=== PATIENT | male | born 1995 | race Caucasian/White ===

== ENCOUNTER 2019-02-06 10:17 | Emergency (ER) | payer OTHER ==
[2019-02-06 10:31] VITALS: BP 125/80; PULSE 62; TEMP 98; BMI 23.2
--- NOTE | 2019-02-06 10:47 | PDOC ---
History of Present Illness - General Chief Complaint: Cold Symptoms Stated Complaint: FLU LIKE Time Seen by Provider: 02/06/19 10:20 - History of Present Illness Initial Comments: 02/06/19 11:57 Chief complaint: Headache, body aches, sore throat HPI: Patient is concerned that he has HIV. He had a sexual encounter several weeks ago, states he is a condom, but is still fearful that it may have broken, though he does not observe such an occurrence. He has had mild sore throat on and off for several weeks. Vague body aches, which are migratory. No swelling , warmth, or erythema of the joints. No muscle weakness. He was tested once for HIV several years ago and was negative. He has no other chronic illnesses Review of systems: As noted above. Otherwise reviewed and negative Past medical history: Otherwise healthy male with no significant past medical or surgical problems and taking no medication other than occasional ibuprofen Social/family history: Denies drugs alcohol or tobacco. Admits increased stress. Negative family history Physical exam: Alert oriented well-developed well-nourished no acute distress but appears somewhat anxious. Cooperative Afebrile, vital signs normal PERRLA 4 mm, fundi benign, ENT clear. There is no sign of pharyngeal erythema or exudate. Neck supple without bruit mass or nodes Lungs clear with full breath sounds bilaterally CV regular without murmur rub or gallop Abdomen soft nontender without mass organomegaly Skin clear, no rash, adequate turgor and wet mucous membranes Extremities no CCE. No joint swelling or inflammation. Neurological C2 to 12 intact. Strength full and symmetric. No focal sensorimotor deficits. Gait stable and unimpaired Impression: Vague constitutional symptoms, no fever or other definite sign of influenza or HIV. Anxiety. Plan: CBC and chemistries, sed rate, and HIV testing as requested. Further evaluation and treatment depending on results. Past History - Past Medical History Allergies/Adverse Reactions: Allergies Allergy/AdvReac Type Severity Reaction Status Date / Time No Known Allergies Allergy Verified 02/21/16 10:51 Home Medications: Ambulatory Orders NK [No Known Home Medication] 06/02/13 COPD: No - Psycho Social/Smoking Cessation Hx Smoking History: Current some day smoker Have you smoked in the past 12 months: Yes Number of Cigarettes Smoked Daily: 1 Information on smoking cessation initiated: Yes Hx Alcohol Use: Yes Drug/Substance Use Hx: No Substance Use Type: Alcohol *Physical Exam - Vital Signs Last Vital Signs Temp Pulse Resp BP Pulse Ox 98 F 62 20 125/80 99 02/06/19 10:18 02/06/19 10:18 02/06/19 10:18 02/06/19 10:18 02/06/19 10:18 ED Treatment Course - LABORATORY CBC & Chemistry Diagram: 02/06/19 10:55 02/06/19 10:55 Medical Decision Making - Medical Decision Making 02/06/19 12:12 CBC, chemistries, and ESR without significant abnormalities. HIV pending. Patient reassured, appears less anxious and in no significant pain or other distress upon discharge, to check HIV results and follow-up primary physician as directed. Discharge - Discharge Information Problems reviewed: Yes Clinical Impression/Diagnosis: Viral syndrome Condition: Stable Disposition: HOME - Admission No - Follow up/Referral - Patient Discharge Instructions Patient Printed Discharge Instructions: DI for Viral Syndrome Additional Instructions: Rest, hydration, good nutrition, adequate sleep. Check HIV result in 1 to 2 days. Follow-up primary physician if symptoms persist. No evidence of significant disease on extensive blood work performed today. - Post Discharge Activity
[2019-02-06 11:09] LABS: BASO % 1.3 % (0-2.0); EOS % 1.2 % (0-4.5); HEMATOCRIT 46.8 % (35.4-49); HEMOGLOBIN 16.1 GM/dl (11.7-16.9); MCH 30.9 pg (25.7-33.7); MCHC 34.5 g/dl (32.0-35.9); MEAN CELL VOLUME 89.6 fl (80-96); MEAN PLT VOLUME 8.2 fl (7.5-11.1); MONO % 14.6 % (3.8-10.2); NEUT % 54.9 % (42.8-82.8); PLATELET COUNT 206 K/MM3 (134-434); RBC 5.22 M/mm3 (4.00-5.60); RDW 11.9 % (11.9-15.9); WHITE BLOOD COUNT 4.8 K/mm3 (4.0-10.8)
[2019-02-06 11:22] LABS: ALBUMIN 4.6 g/dl (3.4-5.0); BILIRUBIN,TOTAL 0.7 mg/dl (0.2-1); CALCIUM 9.6 mg/dl (8.5-10); CREATININE 0.8 mg/dl (0.55-1.3); POTASSIUM 4.2 mmol/L (3.5-5.1); TOT PROT 7.6 g/dl (6.4-8.2)
== END 2019-02-06 12:21 | disposition home or self-care (01) ==
LOC: FER 10:17
DX: B34.9 Viral infection, unspecified (principal); F17.210 Nicotine dependence, cigarettes, uncomplicated
CPT/HCPCS: 36415; 80053; 85025; 85651; 87070; 87389; 87880; 99282-25